=== PATIENT | female | born 1965 | race Caucasian/White ===

== ENCOUNTER 2019-03-24 17:05 | Emergency (ER) | payer BC ==
--- OUTSIDE RECORDS SUMMARY | 2019-03-24 17:18 | XMS REPORT | Continuity of Care Document ---
:1965 External Reference #:[id number] Author Name Yana Lyons Address [address] [facility] [place] [address] Care Team Providers Name Role Phone Zander Greene MD Care Team Information Mental Health Therapist Unavailable Zander Greene MD Primary Care Physician Unavailable Payers Date Identification Numbers Payment Provider Subscriber Policy Number: [id number] Out Of Area [facility] Shara Osorio Group Number: [id number] [address] [id number] PayID: [id number] [place] [address] Problems Active Problems Provider Date Benign essential hypertension Zander Greene M.D. Onset: 07/15/2013 Backache Zander Greene M.D. Onset: 07/15/2013 Family History Date Family Member(s) Observation Comments Father No Current Problems Mother Uterine Cancer Paternal Grandfather due to [place] () Social History Type Date Description Comments Sex Unknown Allergies, Adverse Reactions, Alerts Active Allergies Reaction Severity Comments Date Percocet nausea/dizziness 07/15/2013 Medications Active Medications SIG Qnty Indications Ordering Provider Date Bactrim DS 1 by mouth twice 14tabs Lien Hilandreea, 03/21/2019 800-160mg a day [facility]-C Tablets Ondansetron HCL 1 by mouth every 60tabs R11.2 Deja 08/28/2018 4mg 8 hours as needed Vivien, INDUSTRIAL CLEANING TECHNICIAN Tablets nausea Systane 2 drops each eye 10ml H01.119 Deja 10/11/2017 0.4-0.3% four times a day Vivien, INDUSTRIAL CLEANING TECHNICIAN Solution as needed dryness Naproxen 1 by mouth twice 60tabs M54.5 [place] 11/28/2016 500mg a day with food [facility] Tablets Tramadol HCL 2 in in the 180tabs [place] 07/15/2013 50mg morning 2 in [facility] Tablets afternoon 1-2 at night Fluticasone 1 spray per Unknown Propionate Nasal nostril daily [place] 24- Hour 50mcg/Act Suspension History Medications Lorazepam 1 po twice 20tabs R11.2 [place] 08/28/2018 - 0.5mg daily prn [facility] 03/21/2019 Tablets nausea Diflucan 1 by mouth 2tabs [place] 07/04/2018 - 150mg times 1 day, [facility] 08/22/2018 Tablets may repeat in 5-7d Hydrocortisone Plus apply sparingly 28.400gm H01.119 [place] 10/11/2017 - to affected [facility] 08/22/2018 1% Cream areas of skin Prednisone 4 by mouth x 2 19tabs M79.671 [place] 08/17/2017 - 10mg days, then 3 by [facility] 10/11/2017 Tablets mouth x 2 days, then 2 by mouth x 2 days,then 1 by mouth x 1 day Venlafaxine HCL 1 by mouth 90tabs N95.1 [place] 01/09/2017 - 75mg every day [facility] 10/11/2017 Tablets Multivitamin Women 1 po daily 90tabs [place] 01/09/2017 - [facility] 10/11/2017 Tablets Acetaminophen-Codein 1-2 every 8 60tabs M54.5 [place] 11/28/2016 - e #3 hours as needed [facility] 01/09/2017 300-30mg Tablets for pain Tizanidine HCL 1 by mouth 45tabs M54.5 [place] 11/28/2016 - 4mg three times a [facility] 08/08/2017 Tablets day as needed pain in muscles Prednisone 1 by mouth 5tabs M54.5 [place] 11/28/2016 - 50mg every day [facility] 01/09/2017 Tablets Venlafaxine HCL take once a day 90tabs N95.1 [place] 06/09/2016 - [facility] 01/09/2017 37.5mg Tablets Venlafaxine HCL 1 by mouth 90tabs N95.1 [place] 04/04/2016 - 75mg every other day [facility] 06/09/2016 Tablets Note For Work Shara was S86.912D Odilia Diaz, 03/30/2016 - seen by [facility] 06/09/2016 today and may not return to work until Sunday, 6\\14\\16 Metrogel-Vaginal insert 1 30gm N76.0 [place] 11/26/2015 - applicator-full [facility] 03/30/2016 0.75% Gel every night for seven days Diflucan 1 by mouth 4tabs [place] 10/04/2015 - 150mg times 1 day, [facility] 11/26/2015 Tablets may repeat in 5-7d Chantix 1 po bid 60tabs 305.1 [place] 07/14/2015 - 1mg Tablets [facility] 11/28/2016 Nasonex 2 1units Zander Brooke 04/14/2015 - 50mcg/Act sprays/nostril/ Brianda Greene 04/14/2015 Suspension day Rhinocort Aqua spray one to 17.2units Zander Brooke 04/14/2015 - two sprays in Brianda Greene 03/30/2016 32mcg/Act Suspension each nostril every day as needed Tamiflu 1 by mouth 20caps Zander Brooke 11/09/2014 - 75mg Capsules twice a day x Brianda Greene 04/14/2015 10 days Celexa 1 po qd 30tabs Zander Brooke 01/28/2014 - 10mg Tablets Brianda Greene 04/14/2015 Claritin use 1 po q.d 30caps Zander Brooke 01/28/2014 - 10mg For Allergy Brianda Greene 04/14/2015 Capsules Xanax 1 tab po tid 50tabs Zander Brooke 07/15/2013 - 0.25mg Tablets NE Brianda Greene 04/14/2015 Zantac 75 1 po qd Unknown - 75mg 04/14/2015 Tablets Immunizations CPT Code Status Date Vaccine Lot # [id number] Given 11/28/2016 Tdap Tetanus, W Pertussis [id number] Given Unknown Influenza Vac, Quadrivalent, Slit Virus, Im Vital Signs Date Vital Result Comment 03/21/2019 11:24am BP Systolic 134 mmHg BP Diastolic 96 mmHg Heart Rate 78 /min Body Temperature 97.3 F Height 64.75 inches 5'4.75" measured 04/04/16 Weight 160.00 lb BMI (Body Mass Index) 26.8 kg/m2 08/28/2018 1:28pm BP Systolic 144 mmHg BP Diastolic 100 mmHg Heart Rate 80 /min Body Temperature 97.7 F Respiratory Rate 20 /min Height 64.75 inches 5'4.75" measured 04/04/16 Weight 165.00 lb BMI (Body Mass Index) 27.7 kg/m2 08/23/2018 9:04am BP Systolic 142 mmHg BP Diastolic 90 mmHg Heart Rate 84 /min Body Temperature 97.9 F Height 64.75 inches 5'4.75" measured 04/04/16 Weight 170.00 lb BMI (Body Mass Index) 28.5 kg/m2 02/27/2018 3:46pm BP Systolic 120 mmHg BP Diastolic 70 mmHg Heart Rate 60 /min Body Temperature 98.3 F Respiratory Rate 18 /min Height 64.75 inches 5'4.75" measured 04/04/16 Weight 163.00 lb BMI (Body Mass Index) 27.3 kg/m2 02/20/2018 8:19am BP Systolic 122 mmHg BP Diastolic 80 mmHg Heart Rate 60 /min Body Temperature 98.4 F Respiratory Rate 16 /min Height 64.75 inches 5'4.75" measured 04/04/16 Weight 158.00 lb BMI (Body Mass Index) 26.5 kg/m2 10/11/2017 1:58pm BP Systolic 128 mmHg BP Diastolic 84 mmHg Heart Rate 68 /min Body Temperature 97.7 F Respiratory Rate 16 /min Height 64.75 inches 5'4.75" measured 04/04/16 Weight 167.00 lb BMI (Body Mass Index) 28.0 kg/m2 08/17/2017 10:29am BP Systolic 136 mmHg BP Diastolic 74 mmHg Heart Rate 76 /min Body Temperature 98.6 F Respiratory Rate 16 /min Height 64.75 inches 5'4.75" measured 04/04/16 Weight 167.00 lb BMI (Body Mass Index) 28.0 kg/m2 08/15/2017 1:09pm BP Systolic 140 mmHg BP Diastolic 90 mmHg Heart Rate 68 /min Body Temperature 98.5 F Respiratory Rate 18 /min Height 64.75 inches 5'4.75" measured 04/04/16 Weight 166.00 lb BMI (Body Mass Index) 27.8 kg/m2 08/08/2017 4:06pm BP Systolic 142 mmHg BP Diastolic 88 mmHg Heart Rate 62 /min Body Temperature 97.5 F Height 64.75 inches 5'4.75" measured 04/04/16 Weight 165.00 lb BMI (Body Mass Index) 27.7 kg/m2 01/09/2017 9:15am BP Systolic 142 mmHg BP Diastolic 96 mmHg Heart Rate 84 /min Body Temperature 98.2 F Respiratory Rate 16 /min Height 64.75 inches 5'4.75" measured 04/04/16 Weight 169.00 lb BMI (Body Mass Index) 28.3 kg/m2 11/28/2016 9:36am BP Systolic 110 mmHg BP Diastolic 70 mmHg Heart Rate 68 /min Body Temperature 98.0 F Respiratory Rate 18 /min Height 64.75 inches 5'4.75" measured 04/04/16 Weight 169.00 lb BMI (Body Mass Index) 28.3 kg/m2 06/09/2016 7:57am BP Systolic 124 mmHg BP Diastolic 80 mmHg Heart Rate 80 /min Body Temperature 97.7 F Respiratory Rate 16 /min Height 64.75 inches 5'4.75" measured 04/04/16 Weight 164.12 lb BMI (Body Mass Index) 27.5 kg/m2 04/04/2016 9:56am BP Systolic 122 mmHg BP Diastolic 84 mmHg Heart Rate 84 /min Body Temperature 97.9 F Respiratory Rate 16 /min Height 64.75 inches 5'4.75" measured 04/04/16 Weight 159.50 lb BMI (Body Mass Index) 26.7 kg/m2 03/30/2016 2:59pm BP Systolic 124 mmHg BP Diastolic 80 mmHg Heart Rate 76 /min Body Temperature 97.3 F Respiratory Rate 18 /min Height 65.25 inches 5'5.25" Weight 160.00 lb BMI (Body Mass Index) 26.4 kg/m2 11/26/2015 8:05am BP Systolic 120 mmHg BP Diastolic 80 mmHg Heart Rate 72 /min Body Temperature 97.4 F Height 65.25 inches 5'5.25" Weight 155.00 lb BMI (Body Mass Index) 25.6 kg/m2 07/14/2015 8:05am BP Systolic 130 mmHg BP Diastolic 86 mmHg Heart Rate 76 /min Respiratory Rate 16 /min Height 65.25 inches 5'5.25" Weight 161.00 lb BMI (Body Mass Index) 26.6 kg/m2 04/14/2015 4:24pm BP Systolic 140 mmHg BP Diastolic 80 mmHg Heart Rate 74 /min Body Temperature 98.3 F Respiratory Rate 18 /min Height 65.25 inches 5'5.25" Weight 168.00 lb BMI (Body Mass Index) 27.7 kg/m2 01/28/2014 7:43pm BP Systolic 126 mmHg BP Diastolic 74 mmHg Heart Rate 66 /min Body Temperature 98.2 F Respiratory Rate 18 /min Height 65.25 inches 5'5.25" Weight 183.00 lb BMI (Body Mass Index) 30.2 kg/m2 10/28/2013 4:08pm BP Systolic 150 mmHg BP Diastolic 90 mmHg Heart Rate 64 /min Body Temperature 98.3 F Respiratory Rate 16 /min Height 65.25 inches 5'5.25" Weight 187.00 lb BMI (Body Mass Index) 30.9 kg/m2 07/15/2013 1:22pm BP Systolic 162 mmHg BP Diastolic 102 mmHg Heart Rate 80 /min Body Temperature 97.9 F Respiratory Rate 16 /min Height 65.25 inches 5'5.25" Weight 183.00 lb BMI (Body Mass Index) 30.2 kg/m2 Results Test Date Facility Test Result H/L Range Note Wound 03/21/2019 [facility] Wound/Misc SEE RESULT 1 Culture/Sensi Culture-Gram BELOW Stain Ua - Micro 02/27/2018 [facility] Appe[facility] CLOUDY (a) (607)- - Color YELLOW Glucose, Urine (Fma/CMC/CTX) NEG Bilirubin NEG Ketones NEG SP Grav >=1.030 Blood NEG PH 6.0 Protein NEG Urobil 0.2 Nitrite NEG Leukocytes (Fma/CMC/Centrex) NEG Hyaline - /Lpf Granular - /Lpf WBC (Fma,Centrex) - RBC - Mucus (Fma/CBC/Centrex) - /Lpf Epith - /Lpf Bacteria - /Hpf Amorphous (Fma/CMC/Centrex) - /Lpf Crystals, Fluid (Fma/CMC/CTX) - Z#Comments - Hepatitis Acute Panel 02/27/2018 [facility] Hepatitis B Surface Nonreactive Nonreactive Antigen Hepatitis B Core IgM Nonreactive Nonreactive Hepatitis A AB IgM Nonreactive Nonreactive Hepatitis C Antibody Nonreactive Nonreactive Laboratory test 02/27/2018 [facility] HIV 1&2 NEG Negative finding (607)- - Antibody Screen (Fma) Laboratory test 02/27/2018 [facility]) Amylase, Serum 41 U/L 20- 105 finding Laboratory test 02/27/2018 [facility] Syphillis Igg Nonreactive Nonreactive 2 finding W/Reflex RPR Babesia Microti 02/27/2018 [facility] Babesia microti Negative Negative PCR PCR Babesia ducani Negative Negative Babesia divergens/Mo-1 Negative Negative 3 Laboratory test 02/27/2018 [facility] Lipase 56 U/L N 11.0-82.0 4 finding CBC Electronic Fma 02/20/2018 [facility]) WBC 7.1 x10^3/UL 4.0- 10.0 RBC 3.61 x10^6/UL Low 3.93-6.00 5 HGB 11.7 g/dL Low 12.0-17.0 6 HCT 34 % Low 35-50 7 MCV 95.3 fL High 80.0-95.0 MCH 32.4 pg High 25.6-32.2 8 MCHC 34.0 g/dL 32.2-36.0 RDW-CV 12.5 % 11.6-14.4 PLT 338 x10^3/UL 163-400 MPV 8.9 fL Low 9.4-12.4 9 Jeremi# 5.26 x10^3/UL 1.56-6.13 Lymph# 1.20 x10^3/UL 1.18-3.74 Ida# 0.56 x10^3/UL 0.24-0.82 Eos # 0.1 x10^3/UL 0.0-0.5 Baso # 0.03 x10^3/UL 0.01-0.08 Jeremi% 73.8 % High 34.0-70.0 10 Lymph % 16.8 % Low 20.0-52.0 11 Ida% 7.9 % 5.0-12.0 Eos% 0.8 % 0.7-7.0 Baso% 0.4 % 0.1-1.2 Comprehensive Metabolic 02/20/2018 [facility]) Sodium 140 mEq/L 134-149 Prof Potassium 4.5 mEq/L 3.6-5.5 Chloride 100 mEq/L 94-112 Carbon Dioxide 25 mEq/L 21-32 Glucose 118 mg/dL High 70-105 12 BUN 33 mg/dL High 6-26 13 Creatinine 0.6 mg/dL 0.6-1.4 BUN/Creat Ratio 55.0 CALC High 8.0-36.0 Calcium 9.3 mg/dL 8.6-10.2 Total Protein 7.4 g/dL 6.4-8.3 Albumin 4.7 g/dL 3.8-5.5 Globulin 2.7 g/dL 2.0-4.8 A/G Ratio 1.7 CALC 0.6-2.3 Alk. Phosphatase 71 U/L 30-110 Alt (SGPT) 26 U/L 7-35 Ast (Sgot) 31 U/L 5-34 Total Bilirubin 0.6 mg/dL 0.2-1.3 GFR Non- >60 ml/min/1.73m^ >=60 GFR >60 ml/min/1.73m^ >=60 Laboratory test 02/20/2018 [facility]) Free T4 1.06 ng/dL 0.75- 1.54 finding TSH 2.11 mIU/L 0.50-6.00 Thin prep w/hpv 07/14/2015 [facility] Diagn See Comment: 14 reflexive [address] [place] [address] (257)- - Adeq See Comment: 15 Cicd-9 See Comment: 16 Perfor See Comment: 17 Comm . Note See Comment: 18 Iglbp See Comment: 19 Reflex See Comment: 20 Laboratory test 07/14/2015 [facility] PDF [id number] SEE IMAGE finding [address] [place] [address] (938)- - Comprehensive 07/14/2015 [facility]ma) Sodium 136 mEq/L 134-1 Metabolic Prof 49 Potassium 3.9 mEq/L 3.6-5.5 Chloride 102 mEq/L 94-112 Carbon Dioxide 25 mEq/L 21-32 Glucose 100 mg/dL 70-105 BUN 20 mg/dL 6-26 Creatinine 0.6 mg/dL 0.6-1.4 BUN/Creat Ratio 33.3 CALC 8.0-36.0 Calcium 8.8 mg/dL 8.6-10.2 Total Protein 7.7 g/dL 6.4-8.3 Albumin 4.4 g/dL 3.8-5.5 Globulin 3.3 g/dL 2.0-4.8 A/G Ratio 1.3 CALC 0.6-2.3 Alk. Phosphatase 51 U/L 30-110 Alt (SGPT) 16 U/L 7-35 Ast (Sgot) 20 U/L 5-34 Total Bilirubin 0.4 mg/dL 0.2-1.3 GFR Non- >60 ml/min/1.73m^ >=60 GFR >60 ml/min/1.73m^ >=60 Laboratory test 07/14/2015 [facility] Oliva(a) Free T4 0.78 ng/dL 0.75- 1.54 21 finding Lipid Profile 07/14/2015 [facility](a) Cholesterol 244 mg/dL High 120-200 Triglycerides 61 mg/dL 30-200 HDL Cholesterol 91 mg/dL High 30-85 22 LDL (Calculated) 141 CALC High 0-129 VLDL Cholesterol 12 mg/dL 0-50 HDL Risk Factor 2.7 CALC 0.0-4.4 Laboratory test finding 07/14/2015 [facility](a) TSH 2.00 mIU/L 0.50-6.00 1 SEE RESULT BELOW Name: SHARA OSORIO : [address]: Lien Blackburn GROUND HOST/HOSTESS Acct: [id number] Unit: [id number] AGE: 53 Location: [facility] Re03/21/19 SEX: F Status: REG REF SPEC: [id number] MONIK: 03/21/19-[address] [facility] [address]: Lien Blackburn GROUND HOST/HOSTESS REQ: [id number] RECD: 03/21/19 STATUS: RES _ SOURCE: LEG,LEFT SPDESC: ORDERED: Culture Stain COMMENTS: [id number] QUERIES: Specimen Description LLE Procedure Result Reported Site Wound/Misc Gram Stain Final 03/22/19- 0804 ML No Neutrophils Observed No Organisms Seen Wound/Misc Culture PENDING * ML - Main Lab . END OF REPORT DEPARTMENT OF PATHOLOGY, [address] [place] [address] Daniel Trujillo M.D. Director [facility] # [id number] 2 Warning: A positive result is not useful for establishing a diagnosis of syphilis. In most situations, such a result may reflect a prior treated infection; a negative result can exclude a diagnosis of syphilis except for incubating or early primary disease. 3 ADDITIONAL INFORMATION This test was developed and its performance characteristics determined by [facility] in a manner consistent with CLIA requirements. This test has not been cleared or approved by the U.S. Food and Drug Administration. Test Performed by: [facility] - [address] [address] 4 2 sst 1 la [id number] v EDTA tube 5 RESULTS VERIFIED BY REPEAT ANALYSIS 6 RESULTS VERIFIED BY REPEAT ANALYSIS 7 RESULTS VERIFIED BY REPEAT ANALYSIS 8 RESULTS VERIFIED BY REPEAT ANALYSIS 9 RESULTS VERIFIED BY REPEAT ANALYSIS 10 RESULTS VERIFIED BY REPEAT ANALYSIS 11 RESULTS VERIFIED BY REPEAT ANALYSIS 12 RESULTS VERIFIED BY REPEAT ANALYSIS 13 RESULTS VERIFIED BY REPEAT ANALYSIS 14 NEGATIVE FOR INTRAEPITHELIAL LESION AND MALIGNANCY. 15 Satisfactory for evaluation. 16 V76.2 ; Screening for malignant neoplasm of the cervix 17 Lee Maradiaga, Public Health Inspector (ASCP) 18 The Pap smear is a screening test designed to aid in the detection of premalignant and malignant conditions of the uterine cervix. It is not a diagnostic procedure and should not be used as the sole means of detecting cervical cancer. Both false-positive and false-negative reports do occur. 19 This liquid based ThinPrep(R) pap test was screened with the use of an image guided system. 20 The HPV DNA reflex criteria were not met with this specimen result therefore, no HPV testing was performed. 21 FASTING 22 RESULTS VERIFIED BY REPEAT ANALYSIS Procedures Date Code Description Status 02/20/2018 37840 Electrocardiogram Complete Completed Encounters Type Date Location Provider Dx Diagnosis Office Visit 08/28/2018 [facility] Office Deja R11.2 Nausea with 1:30p Vivien, INDUSTRIAL CLEANING TECHNICIAN vomiting, unspecified R50.9 Fever, unspecified Office Visit 08/23/2018 9:00a [facility] De[facility] Vivien, M54.5 Low back pain INDUSTRIAL CLEANING TECHNICIAN J30.9 Allergic rhinitis, unspecified R11.10 Vomiting, unspecified Office Visit 02/27/2018 3:30p [facility] Office Deja R61 Generalized Vivien, INDUSTRIAL CLEANING TECHNICIAN hyperhidrosis R53.1 Weakness R53.83 Other fatigue R10.84 Generalized abdominal pain R19.7 Diarrhea, unspecified Z11.3 Encntr screen for infections w sexl mode of transmiss Z12.11 Encounter for screening for malignant neoplasm of colon Office Visit 02/20/2018 8:30a [facility] Deja R61 Generalized Vivien, INDUSTRIAL CLEANING TECHNICIAN hyperhidrosis R19.7 Diarrhea, unspecified Office Visit 10/11/2017 2:00p Main Office Deja H01.119 Allergic Vivien, INDUSTRIAL CLEANING TECHNICIAN dermatitis of unspecified eye, unspecified eyelid H10.89 Other conjunctivitis Office Visit 08/17/2017 10:30a [facility] Office Deja M79.671 Pain in right Vivien, INDUSTRIAL CLEANING TECHNICIAN foot Office Visit 08/15/2017 1:00p [facility] Office Wanda Dwyer D48.5 Neoplasm of Dar, GROUND HOST/HOSTESS uncertain behavior of skin Office Visit 08/08/2017 4:00p [facility] Office Deja M79.671 Pain in right Vivien, INDUSTRIAL CLEANING TECHNICIAN foot Office Visit 01/09/2017 9:00a [facility] Office Deja M54.5 Low back pain Vivien, INDUSTRIAL CLEANING TECHNICIAN M79.604 Pain in right leg M79.605 Pain in left leg N95.1 Menopausal and female climacteric states Office Visit 11/28/2016 9:30a [facility] Office Deja Vivien, M54.5 Low back pain INDUSTRIAL CLEANING TECHNICIAN M79.604 Pain in right leg M79.605 Pain in left leg Z23 Encounter for immunization Office Visit 06/09/2016 8:00a [facility] Office Deja N95.1 Menopausal and Vivien, INDUSTRIAL CLEANING TECHNICIAN female climacteric states S86.912D Strain of unsp musc/tend at lower leg level, left leg, subs Office Visit 04/04/2016 10:00a [facility] Deja N95.1 Menopausal and Vivien, INDUSTRIAL CLEANING TECHNICIAN female climacteric states N95.2 Postmenopausal atrophic vaginitis Y92.[address] in single-family (private) house as place Y93.E6 Activity, residential relocation S86.912D Strain of unsp musc/tend at lower leg level, left leg, subs Office Visit 03/30/2016 2:45p [facility] Office Odilia Diaz, S86.912A Strain of unsp INDUSTRIAL CLEANING TECHNICIAN musc/tend at lower leg level, left leg, init Y93.E6 Activity, residential relocation Y92.[address] in single-family (private) house as place Office Visit 11/26/2015 8:00a [facility] Office Deja N76.0 Acute vaginitis Vivien, INDUSTRIAL CLEANING TECHNICIAN Office Visit 07/14/2015 8:00a [facility] Office Deja 477.9 Rhinitis Vivien, INDUSTRIAL CLEANING TECHNICIAN Allergic Cause Unspec 401.1 Hypertension Benign V72.31 Routine Powdered Sugar Supervisor Examination 305.1 Tobacco Use Disorder Office Visit 04/14/2015 4:20p Main Office Zander Greene, 724.5 Backache Unspec Brianda 401.1 Hypertension Benign Office Visit 01/28/2014 7:20p Main Office Zander Brooke 311 Depressive Brianda Greene Disorder Not Elsewhere Spec Office Visit 10/28/2013 4:00p [facility] Office Zander Brooke 719.45 Pain Joint Pelvic [facility] Office Visit 07/15/2013 1:20p [facility] Office Zander Brooke 724.5 Backache Unspec Brianda Greene 401.1 Hypertension Benign Plan of Treatment Future Appointment(s):05/20/2019 8:10 am - Zander Greene M.D. at [facility] [id number]/21/2019 - Dominique Lyons-CL03.116 Cellulitis of left lower limbFollow up:Followup:. (Follow up)AllNew Medication:Bactrim DS 800-160 mg - 1 by mouth twice a dayComments:Medication Management Patient Understands medications she's taking? Yes No Are there Barriers to Adherence? Yes No Has the patient been asked about herbal supplements and therapies, and OTC meds? Yes No Care Plan1. Patient has been queried about patient's goals/preferences and functional/lifestyle goals at relevant visits. If relevant, describe: na2. Treatment goals as explained to the patient: abovesx resolution 3. Are there barriers to meeting treatment goals? Yes No If Yes, please describe:4. Self-Management goals as described to the patient: Yes No willl cover for mrsa f/u if no better 48-72 hrs on medication , sooner if sx worsen culture pending
--- OUTSIDE RECORDS SUMMARY | 2019-03-24 17:18 | XMS REPORT | Continuity of Care Document ---
:1965 External Reference #:[id number] Author Name BLANQUITA Mccall Address [address] [facility] [place] [address] Care Team Providers Name Role Phone Zander Greene MD Care Team Information Coding Analyst Unavailable Zander Greene MD Primary Care Physician Unavailable Payers Date Identification Numbers Payment Provider Subscriber Policy Number: [id number] Out Of Area [facility] Shara Osorio Group Number: [id number] [address] [id number] PayID: [id number] [place] [address] Problems Active Problems Provider Date Benign essential hypertension Zander Greene M.D. Onset: 07/15/2013 Backache Zander Greene M.D. Onset: 07/15/2013 Family History Date Family Member(s) Observation Comments Father No Current Problems Mother Uterine Cancer Paternal Grandfather due to MS () Social History Type Date Description Comments Sex Unknown Tobacco Use Start: Unknown Nonsmoker Smoking Status Reviewed: 03/24/19 Nonsmoker Allergies, Adverse Reactions, Alerts Active Allergies Reaction Severity Comments Date Percocet nausea/dizziness 07/15/2013 Medications Active Medications SIG Qnty Indications Ordering Provider Date Bactrim DS 1 by mouth twice 14tabs Lien Blackburn, 03/21/2019 800-160mg a day Afnp-C Tablets Ondansetron HCL 1 by mouth every 60tabs R11.2 Deja 08/28/2018 4mg 8 hours as needed Vivien, POLICE OFFICER Tablets nausea Systane 2 drops each eye 10ml H01.119 Deja 10/11/2017 0.4-0.3% four times a day Vivien, POLICE OFFICER Solution as needed dryness Naproxen 1 by mouth twice 60tabs M54.5 [place] 11/28/2016 500mg a day with food [facility] Tablets Tramadol HCL 2 in in the 180tabs Deja 07/15/2013 50mg morning 2 in [facility] Tablets afternoon 1-2 at night Fluticasone 1 spray per Unknown Propionate Nasal nostril daily [place] 24- Hour 50mcg/Act Suspension History Medications Lorazepam 1 po twice 20tabs R11.2 [place] 08/28/2018 - 0.5mg daily prn [facility] 03/21/2019 Tablets nausea Diflucan 1 by mouth 2tabs [place] 07/04/2018 - 150mg times 1 day, [facility] 08/22/2018 Tablets may repeat in 5-7d Hydrocortisone Plus apply sparingly 28.400gm H01.119 [place] 10/11/2017 - to affected [facility] 08/22/2018 1% Cream areas of skin Prednisone 4 by mouth x 2 19tabs M79.671 Deja 08/17/2017 - 10mg days, then 3 by [facility] 10/11/2017 Tablets mouth x 2 days, then 2 by mouth x 2 days,then 1 by mouth x 1 day Venlafaxine HCL 1 by mouth 90tabs N95.1 Deja 01/09/2017 - 75mg every day [facility] 10/11/2017 Tablets Multivitamin Women 1 po daily 90tabs [place] 01/09/2017 - [facility] 10/11/2017 Tablets Acetaminophen-Codein 1-2 every 8 60tabs M54.5 [place] 11/28/2016 - e #3 hours as needed [facility] 01/09/2017 300-30mg Tablets for pain Tizanidine HCL 1 by mouth 45tabs M54.5 [place] 11/28/2016 - 4mg three times a [facility] 08/08/2017 Tablets day as needed pain in muscles Prednisone 1 by mouth 5tabs M54.5 [place] 11/28/2016 - 50mg every day [facility] 01/09/2017 Tablets Venlafaxine HCL take once a day 90tabs N95.1 [place] 06/09/2016 - [facility] 01/09/2017 37.5mg Tablets Venlafaxine HCL 1 by mouth 90tabs N95.1 [place] 04/04/2016 - 75mg every other day [facility] 06/09/2016 Tablets Note For Work Shara was S86.912D Odilia Diaz, 03/30/2016 - seen by [facility] 06/09/2016 today and may not return to work until Sunday, 6\\14\\16 Metrogel-Vaginal insert 1 30gm N76.0 [place] 11/26/2015 - applicator-full [facility] 03/30/2016 0.75% Gel every night for seven days Diflucan 1 by mouth 4tabs [place] 10/04/2015 - 150mg times 1 day, [facility] 11/26/2015 Tablets may repeat in 5-7d Chantix 1 po bid 60tabs 305.1 [place] 07/14/2015 - 1mg Tablets [facility] 11/28/2016 Nasonex 2 1units Zander Brooke 04/14/2015 - 50mcg/Act sprays/nostril/ Brianda Greene 04/14/2015 Suspension day Rhinocort Aqua spray one to 17.2uncorey Brooke 04/14/2015 - two sprays in Brianda [...] Zander Brooke 07/15/2013 - 0.25mg Tablets NE Ramona, M.D. 04/14/2015 Zantac 75 1 po qd Unknown - 75mg 04/14/2015 Tablets Immunizations CPT Code Status Date Vaccine Lot # [id number] Given 11/28/2016 Tdap Tetanus, W Pertussis [id number] Given Unknown Influenza Vac, Quadrivalent, Slit Virus, Im Vital Signs Date Vital Result Comment 03/24/2019 3:59pm BP Systolic 158 mmHg BP Diastolic 102 mmHg Heart Rate 78 /min Body Temperature 96.8 F Height 64.75 inches 5'4.75" measured 04/04/16 03/21/2019 11:24am BP Systolic 134 mmHg BP [...] Test Result H/L Range Note Wound 03/21/2019 [facility] Wound/Misc SEE RESULT 1 Culture/Sensi Culture-Gram BELOW Stain Ua - Micro 02/27/2018 [facility] Appearance CLOUDY (Fma) (607)- - Color YELLOW Glucose, Urine (Fma/CMC/CTX) NEG Bilirubin NEG Ketones NEG SP Grav >=1.030 Blood NEG PH 6.0 Protein NEG Urobil 0.2 Nitrite NEG Leukocytes (Fma/CMC/Centrex) NEG Hyaline - /Lpf Granular - /Lpf WBC (Fma,Centrex) - RBC - Mucus (Fma/CBC/Centrex) - /Lpf Epith - /Lpf Bacteria - /Hpf Amorphous (Fma/CMC/Centrex) - /Lpf Crystals, Fluid (Fma/CMC/CTX) - Z#Comments - Hepatitis Acute Panel 02/27/2018 [facility] Hepatitis B Surface Nonreactive Nonreactive Antigen Hepatitis B Core IgM Nonreactive Nonreactive Hepatitis A AB IgM Nonreactive Nonreactive Hepatitis C Antibody Nonreactive Nonreactive Laboratory test 02/27/2018 [facility] HIV 1&2 NEG Negative finding (607)- - Antibody Screen (a) Laboratory test 02/27/2018 [facility] Hazel([facility]) Amylase, Serum 41 U/L 20- 105 finding Laboratory test 02/27/2018 [facility] Syphillis Igg Nonreactive Nonreactive 2 finding W/Reflex RPR Babesia Microti 02/27/2018 [facility] Babesia microti Negative Negative PCR PCR Babesia ducani Negative Negative Babesia divergens/Mo-1 Negative Negative 3 Laboratory test 02/27/2018 [facility] Lipase 56 U/L N 11.0-82.0 4 finding CBC Electronic a 02/20/2018 [facility]el([facility]) WBC 7.1 x10^3/UL 4.0- 10.0 RBC 3.61 x10^6/UL Low 3.93-6.00 5 HGB 11.7 g/dL Low 12.0-17.0 6 HCT 34 % Low 35-50 7 MCV 95.3 fL High 80.0-95.0 MCH 32.4 pg High 25.6-32.2 8 MCHC 34.0 g/dL 32.2-36.0 RDW-CV 12.5 % 11.6-14.4 PLT 338 x10^3/UL 163-400 MPV 8.9 fL Low 9.4-12.4 9 Jeremi# 5.26 x10^3/UL 1.56-6.13 Lymph# 1.20 x10^3/UL 1.18-3.74 Mcmullen# 0.56 x10^3/UL 0.24-0.82 Eos # 0.1 x10^3/UL 0.0-0.5 Baso # 0.03 x10^3/UL 0.01-0.08 Jeremi% 73.8 % High 34.0-70.0 10 Lymph % 16.8 % Low 20.0-52.0 11 Mcmullen% 7.9 % 5.0-12.0 Eos% 0.8 % 0.7-7.0 Baso% 0.4 % 0.1-1.2 Comprehensive Metabolic 02/20/2018 [facility]el(fma) Sodium 140 mEq/L 134-149 Prof Potassium [...] GFR >60 ml/min/1.73m^ >=60 Laboratory test 02/20/2018 Mati Oliva(fma) Free T4 1.06 ng/dL 0.75- 1.54 finding TSH 2.11 mIU/L 0.50-6.00 Thin prep w/hpv 07/14/2015 [facility] Diagn See Comment: 14 reflexive [address] [place] [address] (656)- - Adeq See Comment: 15 Cicd-9 See Comment: 16 Perfor See Comment: 17 Comm . Note See Comment: 18 Iglbp See Comment: 19 Reflex See Comment: 20 Laboratory test 07/14/2015 [facility] PDF [id number] SEE IMAGE finding [address] [place] [address] (862)- - Comprehensive 07/14/2015 [facility]ma) Sodium 136 mEq/L 134-1 Metabolic Prof [...] 1 SEE RESULT BELOW Name: SHARA OSORIO Karan : [address]: Lien Blackburn NP Acct: [id number] Unit: [id number] AGE: 53 Location: [facility] Re03/21/19 SEX: F Status: REG REF SPEC: [id number] MONIK: 03/21/19-[address]: Lien Blackburn NP REQ: [id number] RECD: 03/21/19 STATUS: COMP _ SOURCE: LEG,LEFT SPDESC: ORDERED: Culture Stain COMMENTS: [id number] QUERIES: Specimen Description LLE Procedure Result Reported Site Wound/Misc Gram Stain Final 03/22/19- 0804 ML No Neutrophils Observed No Organisms Seen Wound/Misc Culture Final 03/23/19- 1206 ML No Growth Day 2 * - Main Lab . END OF REPORT DEPARTMENT OF PATHOLOGY, [address] [place] [address] Daniel Trujillo M.D. Director [facility] # [id number] 2 Warning: A positive result is not useful for establishing a diagnosis of syphilis. In most situations, such a result may reflect a prior treated infection; a negative result can exclude a diagnosis of syphilis except for incubating or early primary disease. 3 ADDITIONAL INFORMATION This test was developed and its performance characteristics determined by [facility] in a manner consistent with CLIA requirements. This test has not been cleared or approved by the U.S. Food and Drug Administration. Test Performed by: [facility] - [address] [address] 4 2 sst 1 la [id number] v EDTA tube 5 RESULTS VERIFIED BY [...] neoplasm of the cervix 17 Lee Maradiaga, Linen Clerk (ASCP) 18 The Pap smear is a [...] ANALYSIS Procedures Date Code Description Status 02/20/2018 61496 Electrocardiogram Complete Completed Encounters Type Date Location Provider Dx Diagnosis Office Visit 03/21/2019 [facility] Lien Blackburn, L03.116 Cellulitis of left 11:15a Afnp-C lower limb Office Visit 08/28/2018 [facility] Deja R11.2 Nausea with 1:30p Vivien, POLICE OFFICER vomiting, unspecified R50.9 Fever, unspecified Office Visit 08/23/2018 9:00a [facility] Deja Vivien, M54.5 Low back pain [employer]ICE OFFICER J30.9 Allergic rhinitis, unspecified R11.10 Vomiting, unspecified Office Visit 02/27/2018 3:30p [facility] Deja R61 Generalized Vivien, POLICE OFFICER hyperhidrosis R53.1 Weakness R53.83 Other fatigue R10.84 Generalized abdominal pain R19.7 Diarrhea, unspecified Z11.3 Encntr screen for infections w sexl mode of transmiss Z12.11 Encounter for screening for malignant neoplasm of colon Office Visit 02/20/2018 8:30a [facility] Deja R61 Generalized Vivien, POLICE OFFICER hyperhidrosis R19.7 Diarrhea, unspecified Office Visit 10/11/2017 2:00p [facility] Office Deja H01.119 Allergic Vivien, POLICE OFFICER dermatitis of unspecified eye, unspecified eyelid H10.89 Other conjunctivitis Office Visit 08/17/2017 10:30a [facility] Deja M79.671 Pain in right Vivien, POLICE OFFICER foot Office Visit 08/15/2017 1:00p [facility] Wanda Dwyer D48.5 Neoplasm of Dar, DIRECTOR OF PRODUCT MANAGEMENT uncertain behavior of skin Office Visit 08/08/2017 4:00p [facility] Deja M79.671 Pain in right Vivien, POLICE OFFICER foot Office Visit 01/09/2017 9:00a [facility] Deja M54.5 Low back pain Vivien, POLICE OFFICER M79.604 Pain in right leg M79.605 Pain in left leg N95.1 Menopausal and female climacteric states Office Visit 11/28/2016 9:30a [facility] Deja Vivien, M54.5 Low back pain POLICE OFFICER M79.604 Pain in right leg M79.605 Pain in left leg Z23 Encounter for immunization Office Visit 06/09/2016 8:00a [facility] Deja N95.1 Menopausal and Vivien, POLICE OFFICER female climacteric states S86.912D Strain of unsp musc/tend at lower leg level, left leg, subs Office Visit 04/04/2016 10:00a [facility] Deja N95.1 Menopausal and Vivien, POLICE OFFICER female climacteric states N95.2 Postmenopausal atrophic vaginitis Y92.[address] in single-family (private) house as place Y93.E6 Activity, residential relocation S86.912D Strain of unsp musc/tend at lower leg level, left leg, subs Office Visit 03/30/2016 2:45p [facility] Odilia Joe, S86.912A Strain of unsp POLICE OFFICER musc/tend at lower leg level, left leg, init Y93.E6 Activity, residential relocation Y92.[address] in single-family (private) house as place Office Visit 11/26/2015 8:00a [facility] Deja N76.0 Acute vaginitis Vivien, POLICE OFFICER Office Visit 07/14/2015 8:00a [facility] Deja 477.9 Rhinitis Vivien, POLICE OFFICER Allergic Cause Unspec 401.1 Hypertension Benign V72.31 Routine Adult Basic Education Teacher Examination 305.1 Tobacco Use Disorder Office Visit 04/14/2015 4:20p Main Office Zander Greene, 724.5 Backache Unspec Brianda 401.1 Hypertension Benign Office Visit 01/28/2014 7:20p Main Office Zander Greene M.D. Disorder Not Elsewhere Spec Office Visit 10/28/2013 4:00p [facility] Zander Brooke 719.45 Pain Joint Pelvic Brianda Greene [facility] Office Visit 07/15/2013 1:20p [facility] Zander Brooke 724.5 Backache Unspec Brianda Greene 401.1 Hypertension Benign Plan of Treatment Future Appointment(s):05/20/2019 8:10 am - Zander Greene M.D. at [facility] Gkrnhb7903/24/2019 - Alice Keller, PAL03.116 Cellulitis of left lower limbComments:Culture did not grow any significant culture and erythema is spreading. Patient advised to go to ER and meet with surgical associate to further evaluate the leg. Report given to nurse at [facility] ER. Surgical associates were contacted and message left for Dr. Santiago regarding patient. Patient advised that without emergent treatment, serious consequences could occur such as spreading infection, fever, and even . Patient was offered an ambulance ride to the ER however declined as she is with her daughter who drove to the appointment and can drive to the ER. Patient advised to go directly to the ER.AllComments:PCMHMedication Management Patient Understands medications he's taking? Yes Are there Barriers to Adherence? No Has the patient been asked about herbal supplements and therapies, and OTC meds? Yes Care Plan1. Patient has been queried about patient's goals/preferences and functional/lifestyle goals at relevant visits. Yes If relevant, describe: N/A2. Treatment goals as explained to the patient: above3. Are there barriers to meeting treatment goals? No If Yes, please describe:4. Self-Management goals as described to the patient: Yes As always, we strongly encourage a healthy diet and making physical activity a part of your every day life. If you have questions about how or where to start, please contact the office.
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
[2019-03-24 20:30] LABS: ABS Eosinophils 0.1 10^3/ul (0-0.6); ABS Lymphocytes 1.3 10^3/ul (1.0-4.8); ABS Monocytes 0.8 10^3/ul (0-0.8); ABS Neutrophils 4.3 10^3/ul (1.5-7.7); Hematocrit 41 % (35-47); Hemoglobin 13.5 g/dL (12.0-16.0); Lymphocyte % 19.7 %; Mean Corpuscular HGB Conc 33 g/dL (31-36); Mean Corpuscular Hemoglobin 33 pg (27-31); Mean Corpuscular Volume 98 fL (80-97); Mean Platelet Volume 6.6 fL (7.4-10.4); Platelet Count 285 10^3/uL (150-450); Red Blood Count 4.16 10^6 /uL (3.70-4.87); Red Cell Distribution Width 14 % (10.5-15); White Blood Count 6.6 10^3/uL (3.5-10.8)
[2019-03-24 20:46] LABS: Albumin 4.4 g/dL (3.2-5.2); Albumin/Globulin Ratio 1.3 (1-3); BUN/Creatinine Ratio 15.6 (8-20); Calcium 9.4 mg/dL (8.6-10.3); EGFR African American 118.4 (>60); EGFR Non-African American 97.8 (>60); Globulin 3.3 g/dL (2-4); Potassium 3.6 mmol/L (3.5-5.0); Total Bilirubin 0.4 mg/dL (0.2-1.0); Total Protein 7.7 g/dL (6.4-8.9)
[2019-03-24 21:30] VITALS: BP 145/88
== END 2019-03-24 21:29 | disposition home or self-care (01) ==
LOC: ED 17:05
DX: L98.9 Disorder of the skin and subcutaneous tissue, unspecified (principal); M25.572 Pain in left ankle and joints of left foot; Z88.5 Allergy status to narcotic agent
CPT/HCPCS: 36415; 80053; 83605; 85025; 99283